=== PATIENT | male | born 1950 | race Hispanic/Latino ===

== ENCOUNTER → 2018-03-08 | Day surgery (SDC) | payer OTHER ==
[2018-03-01 11:46] LABS: BASOPHILS % 0.4 % (0.0-1.0); EOSINOPHILS % 0.7 % (0.0-6.0); HEMATOCRIT 43.5 % (38.2-49.6); HEMOGLOBIN 14.9 g/dL (14.0-18.0); LYMPHOCYTES # (AUTO) 1.6 (1.0-3.2); LYMPHOCYTES % 29.2 % (18.0-39.1); MEAN CORPUSCULAR HEMOGLOBIN 29.9 pg (28-32); MEAN CORPUSCULAR HGB CONC 34.3 g/dL (31-35); MEAN CORPUSCULAR VOLUME 87.2 fL (81-99); MONOCYTES # (AUTO) 0.5 (0.2-0.8); MONOCYTES % 8.7 % (4.4-11.3); NEUTROPHILS # (AUTO) 3.4 (2.1-6.9); NEUTROPHILS % 60.6 % (38.7-80.0); PLATELET COUNT 183 x10e3/uL (140-360); RED BLOOD COUNT 4.99 x10e6/uL (4.3-5.7); RED CELL DISTRIBUTION WIDTH 11.6 % (11.7-14.4)
[2018-03-01 12:02] LABS: ANION GAP 11.9 mmol/L (8-16); BLOOD UREA NITROGEN 9 mg/dL (7-26); BUN/CREATININE RATIO 11 (6-25); CARBON DIOXIDE 25 mmol/L (22-29); CHLORIDE 104 mmol/L (98-107); CREATININE, SERUM 0.82 mg/dL (0.72-1.25); EST GLOMERULAR FILTRATION RATE > 60 ML/MIN (60-); GLUCOSE 110 mg/dL (74-118); POTASSIUM 3.9 mmol/L (3.5-5.1); SODIUM 137 mmol/L (136-145)
--- NOTE | 2018-03-01 12:28 | Diagnostic Imaging Report ---
EXAMINATION: CHEST 2 VIEWS COMPARISON: None FINDINGS: TUBES and LINES: None. LUNGS: Lungs are well inflated. Lungs are clear. There is no evidence of pneumonia or pulmonary edema. PLEURA: No pleural effusion or pneumothorax. HEART AND MEDIASTINUM: The cardiomediastinal silhouette is unremarkable. BONES AND SOFT TISSUES: No acute osseous lesion. Soft tissues are unremarkable. UPPER ABDOMEN: No free air under the diaphragm. IMPRESSION: No acute radiographic abnormality. Signed by: Dr. Austen Curtis MD on 03/01/2018 12:25 PM
[~2018-03-08] MED LIST: ACETAMINOPHEN 1000 MG/100 ML 100 ML IV ONE; BUPIVACAINE 0.25%/EPI 30ML SDV INJ ONE; DEXAMETHASONE SOD PHOS INJ 4 MG/ML VIAL ONE; EPHEDRINE SULFATE INJ 50 MG/10 ML SYR ONE; FENTANYL CITRATE/PF 100MCG/2 ML INJ ONE; FLOMAX0.4 MG PO; GLYCOPYRROLATE INJ 1MG/ 5 ML SYR ONE; LIDOCAINE HCL (LTA) 4 ML SOLN ONE; LIDOCAINE HCL 2% LOCAL INJ 5 ML SDV VIAL INJ ONE; MIDAZOLAM HCL 2 MG/2 ML VIAL ONE; NEOSTIGMINE 5 MG/5ML SYR ONE; ONDANSETRON HCL INJ 2 MG/ML VIAL ONE; PROPOFOL IV EMULSION 10 MG/ML 20 ML VIAL ONE; ROCURONIUM BROMIDE 10 MG/ML 5ML VIAL ONE; SEVOFLURANE INHAL SOLN 250 ML PEN BTL ONE; ZIAC PO
--- OUTSIDE RECORDS SUMMARY | 2018-03-08 05:20 | XMS REPORT ---
[facility] Address Unknown Phone Unavailable Care Team Providers Care Orthopedic Rn Name Role Phone Clair MARKS Unavailable Unavailable Problems This patient has no known problems. Allergies, Adverse Reactions, Alerts This patient has no known allergies or adverse reactions. Medications This patient has no known medications. Results Test Description Test Time Test Comments Text Results Atomic Results Result Comments CHEST 2 VIEWS 2018-03-01 12:24:00 [place] [address] Patient Name: DA LUI MR #: [id number] : 1950 Age/Sex: 67/M Req #: [id number] [facility] Physician: Ordered by: JANNY MARKS MD Report #: [id number] Location: OR Room/Bed: Procedure: [id number] DX/CHEST 2 VIEWS Exam Date: 03/01/18 Exam Time: 1115 REPORT STATUS: Signed EXAMINATION: CHEST 2 VIEWS COMPARISON: None FINDINGS: TUBES and LINES: None. LUNGS: Lungs are well inflated. Lungs are clear. There is no evidence of pneumonia or pulmonary edema. PLEURA: No pleural effusion or pneumothorax. HEART AND MEDIASTINUM: The cardiomediastinal silhouette is unremarkable. BONES AND SOFT TISSUES: No acute osseous lesion. Soft tissues are unremarkable. UPPER ABDOMEN: No free air under the diaphragm. IMPRESSION: No acute radiographic abnormality. Signed by: Dr. Tamar Machado MD on 03/01/2018 12:25 PM Dictated By: TAMAR MACHADO MD 1225 Transcribed By: NI on 03/01/18 1225 COPY TO: JANNY MARKS MD
--- NOTE | 2018-03-08 10:54 | Operative Report ---
DATE OF PROCEDURE: March 08, 2018 PREOPERATIVE DIAGNOSIS: Incarcerated umbilical hernia. POSTOPERATIVE DIAGNOSIS: Incarcerated umbilical hernia. OPERATION PERFORMED: Repair incarcerated umbilical hernia with Ventralex patch. PROCESSING ENGINEER: HUMPHREY Kendall. ANESTHESIA: General. COMPLICATIONS: None. ESTIMATED BLOOD LOSS: Minimal. DESCRIPTION OF PROCEDURE: With the patient lying in bed in the supine position under good general anesthesia, the abdomen was prepped with Betadine solution, draped in the usual manner. A semilunar subumbilical incision was made, was carried down through the subcutaneous tissue, down to the fascia. The hernia sac was then from the umbilicus and the hernia sac was then opened. There was a large amount of omentum which was then reduced back to the intra-abdominal cavity. The excess of the hernia sac was resected. Examination revealed the tissues to be reasonable all the way around. We decided to fix the defects with mesh and a medium-size Ventralex patch was then placed in the intraabdominal position and the defects were then closed transversely with interrupted sutures of 0 Ethibond anchoring the mesh on the way out. After this was done, hemostasis was ascertained. All layers were infiltrated on the way out with solution of quarter-percent Marcaine. Umbilicus was then tacked back down to the midline fascia with 3-0 Vicryl. The subcutaneous tissue was approximated with 3-0 Vicryl and the skin was closed with interrupted vertical mattress sutures of 3-0 silk. A dressing was applied. The sponge, lap and needle count was correct. Patient tolerated the procedure well and returned to the recovery room in stable condition. Job#: [id number] SHERITA
[2018-03-08 11:30] VITALS: BP 140/85
== END | disposition home or self-care (01) ==
LOC: OR 05:18
PROVIDERS: ATTEND Surgery
DX: K42.0 Umbilical hernia with obstruction, without gangrene (principal); N40.0 Benign prostatic hyperplasia without lower urinary tract symptoms; Z01.810 Encounter for preprocedural cardiovascular examination; Z01.812 Encounter for preprocedural laboratory examination; Z01.818 Encounter for other preprocedural examination; I10 Essential (primary) hypertension; Z86.73 Personal history of transient ischemic attack (TIA), and cerebral infarction without residual deficits
CPT/HCPCS: 36415; 49587; 71046; 80048; 85025; 93005; C1781; J0131; J1100; J2001; J2250; J2405; J2704; J3490